=== PATIENT | female | born 1990 | race Caucasian/White ===

== ENCOUNTER 2021-09-30 11:07 | Outpatient (REF) | payer OTHER, SELFPAY ==
--- NOTE | 2021-09-30 09:20 | PAPFT_PTH ---
PATIENT: Lisa Gandhi LOC: [facility] U#:[id number] AGE/SX: 30/F ROOM: RE09/30/[address]: Gia Cho : 1990 BED: DIS: 09/30/2021 SPEC #: [id number] RECD: 09/30/21 18:00 STATUS: ANDREW PLUNKETT #: [id number] MERLYN: 09/30/21 09:[address]: Gia Cho DEPT: [facility] Cytology RECD BY: Selma Mast Tissues: 1 - CX/ENDOCX FOR PAP SMEARS Procedures: PAP THIN PREP/[facility] Screening HPV DNA PROBE Comments: [id number]
== END 2021-09-30 11:08 | disposition home or self-care (01) ==
LOC: NCHCN 11:07
PROVIDERS: Visit Provider Nurse Practitioner Family
DX: Z12.4 Encounter for screening for malignant neoplasm of cervix (principal); Z11.51 Encounter for screening for human papillomavirus (HPV)
CPT/HCPCS: 88142; 87624

== ENCOUNTER 2023-09-28 10:59 | Outpatient (REF) | payer OTHER, SELFPAY ==
[2023-09-28 14:59] LABS: HCT 37.8 % (36.0-46.0); HGB 12.8 g/dL (11.2-15.7); MCH 29.6 pg (27.0-33.0); MCHC 33.9 % (32.0-36.0); MCV 88 fL (80-95); MPV 10.8 fL (8.0-11.0); Platelet Count 183 10^3/uL (130-400); RBC 4.32 10^6/uL (3.93-5.22); RDW 13.4 % (11.7-14.6); RDW-SD 43.3 fL; WBC 4.85 10^3/uL (4.4-10.8)
[2023-09-28 15:06] LABS: Iron 72 ug/dL (50-170); Total Iron Binding Capacity 265 ug/dL (250-450); Transferrin Sat 27 % (15-50)
[2023-09-28 15:27] LABS: Anion Gap 9.9 mmol/L (3-11); BUN 18 mg/dL (7-18); CO2 28.1 mmol/L (21.0-32.0); CREATININE 0.8 mg/dL (0.55-1.02); Calcium 8.8 mg/dL (8.5-10.1); Chloride 105 mmol/L (98-107); Estimated GFR 100.33 (mL/min/1.73m2); Ferritin 66 ng/mL (8-252); Glucose 85 mg/dL (74-106); Potassium 4.2 mmol/L (3.5-5.1); Sodium 143 mmol/L (136-145)
[2023-09-28 15:50] LABS: Hemoglobin A1C 5.4 % (<5.7)
== END 2023-09-28 11:00 | disposition home or self-care (01) ==
LOC: NCHCN 10:59
PROVIDERS: Visit Provider Nurse Practitioner Family
DX: R55 Syncope and collapse (principal)
CPT/HCPCS: 80048; 85027; 82728; 83036; 83540; 83550

== ENCOUNTER 2024-01-23 11:20 | Outpatient (REF) | payer OTHER, SELFPAY ==
--- NOTE | 2024-01-23 10:20 | PAPFT_PTH ---
PATIENT: Lisa Gandhi LOC: [facility] U#:[id number] AGE/SX: 33/F ROOM: RE01/23/[address]: Gia Cho : 1990 BED: DIS: 01/23/2024 SPEC #: [id number] RECD: 01/23/24 17:33 STATUS: ANDREW REQ #: [id number] MERLYN: 01/23/24 10:[address]: Gia Cho DEPT: [facility] Cytology RECD BY: Selma Mast ENTERED: 01/23/24 17:33 SP TYPE: PAPFT OTHR DR: Unknown,Unknown Tissues: 1 - CX/ENDOCX FOR PAP SMEARS Procedures: PAP THIN PREP/[facility] Screening HPV DNA PROBE Comments: [id number]
== END 2024-01-23 11:21 | disposition home or self-care (01) ==
LOC: NCHCN 11:20
PROVIDERS: Visit Provider Nurse Practitioner Family
DX: Z00.00 Encounter for general adult medical examination without abnormal findings (principal); Z12.4 Encounter for screening for malignant neoplasm of cervix; Z01.419 Encounter for gynecological examination (general) (routine) without abnormal findings; Z11.51 Encounter for screening for human papillomavirus (HPV)
CPT/HCPCS: 88142; 87624

== ENCOUNTER 2025-01-28 15:05 | Outpatient (REF) | payer OTHER, SELFPAY ==
[2025-01-28 15:34] LABS: HCT 38.5 % (36.0-46.0); HGB 12.7 g/dL (11.2-15.7); MCH 30.1 pg (27.0-33.0); MCV 91 fL (80-95); MPV 10.9 fL (8.0-11.0); Platelet Count 194 10^3/uL (130-400); RBC 4.22 10^6/uL (3.93-5.22); RDW 13.3 % (11.7-14.6); RDW-SD 44.4 fL; WBC 5.96 10^3/uL (4.4-10.8)
[2025-01-28 16:02] LABS: ALT 21 U/L (14-59); AST 23 U/L (15-37); Albumin 3.8 g/dL (3.4-5.0); Alkaline Phosphatase 79 U/L (46-116); Anion Gap 5.2 mmol/L (3-11); BUN 21 mg/dL (7-18); Bilirubin, Total 0.3 mg/dL (0.2-1.0); CO2 29.8 mmol/L (21.0-32.0); CREATININE 0.7 mg/dL (0.55-1.02); Calcium 9.1 mg/dL (8.5-10.1); Chloride 106 mmol/L (98-107); Estimated GFR 116.31 (mL/min/1.73m2); Glucose 90 mg/dL (74-106); Potassium 4.8 mmol/L (3.5-5.1); Sodium 141 mmol/L (136-145); Total Protein 6.7 g/dL (6.4-8.2)
== END 2025-01-28 15:06 | disposition home or self-care (01) ==
LOC: NCHCN 15:05
PROVIDERS: Visit Provider Nurse Practitioner Family
DX: Z00.00 Encounter for general adult medical examination without abnormal findings (principal)
CPT/HCPCS: 80053; 85027